=== PATIENT | male | born 2000 | race African-American/Black ===

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

== ENCOUNTER 2024-07-04 10:30 | Emergency (ER) | payer MEDICAID ==
[~2024-07-04] VITALS: Ht 152.4 cm; Wt 65.7 kg
[~2024-07-04 10:30] MED LIST changes: +DIAZ-570 PO; -DIAZ10TA PO
[2024-07-04 10:38] VITALS: PULSE 94; TEMP 36.8; O2SAT 98
[2024-07-04] MEDS ORDERED: NEOM28.43 TP (11:15)
== END 2024-07-04 11:35 | disposition home or self-care (01) ==
LOC: ER 10:37
DX: S00.212A Abrasion of left eyelid and periocular area, initial encounter (principal); F84.0 Autistic disorder; W22.03XA Walked into furniture, initial encounter; Y93.9 Activity, unspecified; Y92.89 Other specified places as the place of occurrence of the external cause; Y99.8 Other external cause status
CPT/HCPCS: 99283